=== PATIENT | male | born 1980 | race Hispanic/Latino ===

== ENCOUNTER → 2019-02-06 | Outpatient (CLI) | payer OTHER ==
--- NOTE | 2019-02-06 09:44 | REP ---
Clinical: History of smoking . Comparison: None . Technique: PA and lateral. Findings: The mediastinum and cardiac silhouette are normal. The lung mackenzie are clear and without acute consolidation, effusion, or pneumothorax. The skeletal structures are intact and normal. Impression: 1. No acute cardiopulmonary process. Electronically Signed by Haseeb Pitts MD 02/06/2019 09:35 A
== END ==
LOC: M RAD 09:02
PROVIDERS: ATTEND Surgery
DX: Z12.2 Encounter for screening for malignant neoplasm of respiratory organs (principal); Z87.891 Personal history of nicotine dependence